=== PATIENT | female | born 1930 | race Caucasian/White ===

== ENCOUNTER 2019-05-01 10:49 | Inpatient (IN) ==
[2019-05-01] MEDS ORDERED: 0.9 % Sodium Chloride 1,000 ML IVC STA (11:08)
[2019-05-01 11:37] LABS: Bilirubin,Urine Negative (Negative); Blood,Urine Negative (Negative); Clarity,Urine Cloudy (Clear); Color,Urine Yellow (Yellow); Glucose,Urine (UA) Normal (Normal); Ketones,Urine Negative (Negative); Leukocyte Esterase,Urine Moderate (Negative); Nitrite,Urine Positive (Negative); PH,Urine 6.5 pH Units (5.0-8.0); Protein,Urine Negative (Neg-Trace); Specific Gravity,Urine 1.015 (1.010-1.025); Urobilinogen,Urine Normal (Normal)
[2019-05-01 11:40] LABS: Bacteria,Urine Many per hpf (None-Few); Hyaline Casts,Urine Few per lpf (None-Few); RBC,Urine 0-3 per hpf (0-3); Squamous Epithelial Cell,Urine Moderate per lpf (None-Few); WBC,Urine 50-100 per hpf (0-3)
[2019-05-01 11:56] LABS: Basophils # 0.1 K/mcL (0.0-0.2); Eosinophils # 0.2 K/mcL (0.0-0.6); Hematocrit 40.3 % (35.3-44.9); Hemoglobin 12.9 g/dL (11.5-15.4); Immature Granulocytes % 0.4 % (0-4); Lymphocytes % 18.4 %; Mean Corpuscular Hemoglobin 28.7 pg (28.0-33.3); Mean Corpuscular Volume 89.6 fL (83.0-100.0); Mean Platelet Volume 10.8 fL (9.4-12.4); Monocytes # 0.4 K/mcL (0.0-1.3); Monocytes % 8.1 %; Neutrophils # 3.6 K/mcL (1.6-8.9); Platelet Count 239 K/mcL (140-400); Red Cell Distribution Width 13.7 % (11.5-14.5); Segmented Neutrophils % 68.1 %; White Blood Count 5.2 K/mcL (4.3-11.1)
[2019-05-01 12:11] LABS: BUN/Creatinine Ratio 19 (6-26); Blood Urea Nitrogen 19 mg/dL (8-23); Calcium 9.7 mg/dL (8.6-10.3); Carbon Dioxide 27 mEq/L (23-29); Chloride 107 mEq/L (98-107); Glucose 96 mg/dL (70-105); Osmolality,Calculated 296 (280-300); Potassium 4.1 mEq/L (3.5-5.1); Sodium 142 mEq/L (136-145); eGFR For African Americans > 60 (> 60); eGFR For Non-African Americans 52 (> 60)
[2019-05-01] MEDS ORDERED: cefTRIAXone 1,000 MG in 0.9 % Sodium Chloride Mini Bag 100 ML IVPB ONE (12:32)
[2019-05-01] MEDS ORDERED: Ondansetron 4 MG/2 ML VIAL IVP PRN (13:51)
[2019-05-01] MEDS ORDERED: Naloxone 0.4 MG/ML INJ IVP PRN (13:51)
[2019-05-01 15:31] LABS: Magnesium 2.1 mg/dL (1.6-2.6)
[2019-05-01 15:32] LABS: Troponin I < 0.03 ng/mL (< 0.04)
[2019-05-01] MEDS: *HR* Heparin 5,000 UNIT/ML VIAL SQ SCH (17:43)
[2019-05-02 03:04] LABS: Alanine Aminotransferase 5 Units/L (7-52); Albumin 3.5 g/dL (3.5-5.7); Albumin/Globulin Ratio 1.3 (1.1-2.2); Alkaline Phosphatase 62 Units/L (34-104); Aspartate Amino Transferase 10 Units/L (13-39); BUN/Creatinine Ratio 16 (6-26); Bilirubin,Total 0.4 mg/dL (0.3-1.0); Blood Urea Nitrogen 15 mg/dL (8-23); Calcium 9.5 mg/dL (8.6-10.3); Carbon Dioxide 24 mEq/L (23-29); Chloride 106 mEq/L (98-107); Chol/HDL Ratio 5.9 (0-4.9); Cholesterol 226 mg/dL (< 200); Globulin 2.8 g/dL (2.4-3.5); Glucose 107 mg/dL (70-105); HDL Cholesterol 38 mg/dL (40-59); LDL Cholesterol,Calculated 151 mg/dL (0-99); Osmolality,Calculated 287 (280-300); Potassium 3.8 mEq/L (3.5-5.1); Sodium 138 mEq/L (136-145); Total Protein 6.3 g/dL (6.4-8.9); Triglycerides 186 mg/dL (< 150); eGFR For African Americans > 60 (> 60); eGFR For Non-African Americans 57 (> 60)
[2019-05-02] MEDS: *HR* Heparin 5,000 UNIT/ML VIAL SQ SCH ×2 (05:02→17:16)
[2019-05-02] MEDS: cefTRIAXone 1,000 MG in Water for inj. (sterile) 10 ML IVP SCH (08:26)
[2019-05-02] MEDS: (Donepezil Hcl 23 MG) PO SCH (09:01)
[2019-05-03] MEDS ORDERED: Haloperidol Lactate 5 MG/ML VIAL IVP ONE (00:33)
[2019-05-03] MEDS ORDERED: *HR* Promethazine 25 MG/ML VIAL IVP ONE (00:33)
[2019-05-03] MEDS: *HR* Heparin 5,000 UNIT/ML VIAL SQ SCH ×2 (05:11→17:41)
[2019-05-03] MEDS: cefTRIAXone 1,000 MG in Water for inj. (sterile) 10 ML IVP SCH (09:54)
[2019-05-03] MEDS: (Donepezil Hcl 23 MG) PO SCH (09:55)
[2019-05-04] MEDS: *HR* Heparin 5,000 UNIT/ML VIAL SQ SCH (05:14)
[2019-05-04 07:12] VITALS: BP 152/75
[2019-05-04] MEDS: (Donepezil Hcl 23 MG) PO SCH (10:08)
[2019-05-04] MEDS: cefTRIAXone 1,000 MG in Water for inj. (sterile) 10 ML IVP SCH (10:08)
== END 2019-05-04 13:09 | disposition home or self-care (01) | DRG 689 ==
LOC: EMEROOARM 10:49 → 3BNU 10:49 → SUATTDRO 13:34 → 3BNU 14:19
PROVIDERS: ADMIT Internal Medicine; ATTEND Internal Medicine

== ENCOUNTER 2019-05-08 11:48 | Observation (INO) ==
[2019-05-08] MEDS ORDERED: Piperacillin/Tazobactam 3.375 GM in 0.9 % Sodium Chloride Mini Bag 100 ML IVPB ONE (12:22)
[2019-05-08] MEDS ORDERED: 0.9 % Sodium Chloride 500 ML IVC ONE (12:24)
[2019-05-08 13:15] LABS: Basophils # 0.1 K/mcL (0.0-0.2); Eosinophils # 0.2 K/mcL (0.0-0.6); Eosinophils % 2.7 %; Hematocrit 39.9 % (35.3-44.9); Immature Granulocytes % 0.5 % (0-4); Lymphocytes % 16.5 %; Mean Corpuscular HGB Conc 32.6 g/dL (31.6-35.5); Mean Corpuscular Hemoglobin 28.8 pg (28.0-33.3); Mean Corpuscular Volume 88.5 fL (83.0-100.0); Mean Platelet Volume 10.5 fL (9.4-12.4); Monocytes # 0.5 K/mcL (0.0-1.3); Monocytes % 7.6 %; Neutrophils # 4.5 K/mcL (1.6-8.9); Platelet Count 310 K/mcL (140-400); Red Blood Count 4.51 M/mcL (3.82-4.97); Red Cell Distribution Width 13.6 % (11.5-14.5); Segmented Neutrophils % 71.7 %; White Blood Count 6.3 K/mcL (4.3-11.1)
[2019-05-08 13:21] LABS: Bilirubin,Urine Negative (Negative); Blood,Urine Negative (Negative); Clarity,Urine Clear (Clear); Color,Urine Yellow (Yellow); Glucose,Urine (UA) Normal (Normal); Ketones,Urine Negative (Negative); Leukocyte Esterase,Urine Negative (Negative); Nitrite,Urine Negative (Negative); Protein,Urine Negative (Neg-Trace); Urobilinogen,Urine Normal (Normal)
[2019-05-08 13:44] LABS: Alanine Aminotransferase 7 Units/L (7-52); Albumin 3.6 g/dL (3.5-5.7); Albumin/Globulin Ratio 1.1 (1.1-2.2); Alkaline Phosphatase 66 Units/L (34-104); Aspartate Amino Transferase 12 Units/L (13-39); BUN/Creatinine Ratio 31 (6-26); Bilirubin,Direct 0.1 mg/dL (0.0-0.2); Bilirubin,Indirect 0.3 mg/dL (0.0-1.0); Bilirubin,Total 0.4 mg/dL (0.3-1.0); Blood Urea Nitrogen 34 mg/dL (8-23); Calcium 9.7 mg/dL (8.6-10.3); Carbon Dioxide 25 mEq/L (23-29); Chloride 105 mEq/L (98-107); Globulin 3.2 g/dL (2.4-3.5); Glucose 101 mg/dL (70-105); Osmolality,Calculated 296 (280-300); Potassium 4.7 mEq/L (3.5-5.1); Sodium 139 mEq/L (136-145); Total Protein 6.8 g/dL (6.4-8.9); Troponin I < 0.03 ng/mL (< 0.04); eGFR For African Americans 57 (> 60); eGFR For Non-African Americans 47 (> 60)
[2019-05-08] MEDS ORDERED: Ondansetron 4 MG/2 ML VIAL IVP PRN (16:55)
[2019-05-08] MEDS ORDERED: Naloxone 0.4 MG/ML INJ IVP PRN (16:55)
[2019-05-08] MEDS ORDERED: Acetaminophen 325 MG TABLET PO PRN (16:55)
[2019-05-08] MEDS ORDERED: 0.9 % Sodium Chloride 1,000 ML IVC SCH (17:00)
[2019-05-08] MEDS: Diclofenac Sodium (DR) 75 MG TABLET.DR PO SCH (22:47)
[2019-05-09 06:03] LABS: Basophils % 0.6 %; Eosinophils # 0.3 K/mcL (0.0-0.6); Hematocrit 36.1 % (35.3-44.9); Immature Granulocytes % 0.4 % (0-4); Mean Corpuscular HGB Conc 31.3 g/dL (31.6-35.5); Mean Corpuscular Hemoglobin 29.4 pg (28.0-33.3); Mean Corpuscular Volume 93.8 fL (83.0-100.0); Monocytes # 0.5 K/mcL (0.0-1.3); Monocytes % 7.4 %; Neutrophils # 5.1 K/mcL (1.6-8.9); Platelet Count 265 K/mcL (140-400); Red Blood Count 3.85 M/mcL (3.82-4.97); Red Cell Distribution Width 13.6 % (11.5-14.5); Segmented Neutrophils % 73.6 %; White Blood Count 6.9 K/mcL (4.3-11.1)
[2019-05-09 06:07] LABS: Hemoglobin 11.3 g/dL (11.5-15.4)
[2019-05-09 06:30] LABS: Calcium 8.9 mg/dL (8.6-10.3); Magnesium 2.4 mg/dL (1.6-2.6); Phosphorous 3.2 mg/dL (2.7-4.5); Potassium 4.6 mEq/L (3.5-5.1)
[2019-05-09] MEDS: Diclofenac Sodium (DR) 75 MG TABLET.DR PO SCH (07:38)
[2019-05-09 12:17] VITALS: BP 109/70
== END 2019-05-09 16:37 | disposition home health service (06) ==
LOC: 3BNU 11:48 → EMEROOARM 11:48 → SUATTDRO 17:33 → 3BNU 18:41
PROVIDERS: ADMIT Family Medicine; ATTEND Internal Medicine

== ENCOUNTER 2019-06-10 13:47 | Observation (INO) ==
[2019-06-10 14:24] LABS: Bilirubin,Urine Negative (Negative); Blood,Urine Negative (Negative); Clarity,Urine Clear (Clear); Color,Urine Yellow (Yellow); Glucose,Urine (UA) Normal (Normal); Ketones,Urine Negative (Negative); Leukocyte Esterase,Urine Trace (Negative); Nitrite,Urine Negative (Negative); PH,Urine 7.5 pH Units (5.0-8.0); Protein,Urine Trace mg/dL (Neg-Trace); Urobilinogen,Urine Normal (Normal)
[2019-06-10 14:27] LABS: Bacteria,Urine None Seen per hpf (None-Few); Hyaline Casts,Urine None Seen per lpf (None-Few); Squamous Epithelial Cell,Urine Moderate per lpf (None-Few); WBC,Urine 0-3 per hpf (0-3)
[2019-06-10 14:32] LABS: Amphetamine Screen,Urine Negative ng/mL (Cutoff=1000); Barbiturate Screen,Urine Negative ng/mL (Cutoff=200); Benzodiazepines Screen,Urine Negative ng/mL (Cutoff=200); Cannabinoid Screen,Urine Negative ng/mL (Cutoff = 50); Cocaine Screen,Urine Negative ng/mL (Cutoff= 300); Opiate Screen,Urine Negative ng/mL (Cutoff=300); Phencyclidine Screen,Urine Negative ng/mL (Cutoff=25)
[2019-06-10 14:51] LABS: Basophils # 0.1 K/mcL (0.0-0.2); Basophils % 0.8 %; Eosinophils # 0.2 K/mcL (0.0-0.6); Eosinophils % 2.7 %; Hematocrit 39.8 % (35.3-44.9); Immature Granulocytes % 1.4 % (0-4); Lymphocytes # 1.4 K/mcL (0.6-4.6); Lymphocytes % 18.4 %; Mean Corpuscular HGB Conc 30.2 g/dL (31.6-35.5); Mean Corpuscular Hemoglobin 28.6 pg (28.0-33.3); Mean Platelet Volume 10.2 fL (9.4-12.4); Monocytes # 0.4 K/mcL (0.0-1.3); Monocytes % 5.6 %; Neutrophils # 5.6 K/mcL (1.6-8.9); Platelet Count 348 K/mcL (140-400); Red Blood Count 4.19 M/mcL (3.82-4.97); Red Cell Distribution Width 14.7 % (11.5-14.5); Segmented Neutrophils % 71.1 %; White Blood Count 7.8 K/mcL (4.3-11.1)
[2019-06-10 14:54] LABS: INR 0.9
[2019-06-10 14:57] LABS: Activated Partial Thrombo Time 28.8 Seconds (26.0-36.0)
[2019-06-10 15:10] LABS: Alanine Aminotransferase 8 Units/L (7-52); Albumin 3.7 g/dL (3.5-5.7); Albumin/Globulin Ratio 1.1 (1.1-2.2); Alkaline Phosphatase 81 Units/L (34-104); Aspartate Amino Transferase 11 Units/L (13-39); BUN/Creatinine Ratio 34 (6-26); Bilirubin,Direct 0.1 mg/dL (0.0-0.2); Bilirubin,Indirect 0.2 mg/dL (0.0-1.0); Bilirubin,Total 0.3 mg/dL (0.3-1.0); Blood Urea Nitrogen 35 mg/dL (8-23); Calcium 9.9 mg/dL (8.6-10.3); Carbon Dioxide 28 mEq/L (23-29); Chloride 103 mEq/L (98-107); Ethanol < 10 mg/dL (Less than 10); Globulin 3.3 g/dL (2.4-3.5); Glucose 97 mg/dL (70-105); Osmolality,Calculated 300 (280-300); Potassium 4.9 mEq/L (3.5-5.1); Sodium 141 mEq/L (136-145); Troponin I < 0.03 ng/mL (< 0.04); eGFR For African Americans > 60 (> 60); eGFR For Non-African Americans 51 (> 60)
[2019-06-10] MEDS ORDERED: Ondansetron 4 MG/2 ML VIAL IVP PRN (16:17)
[2019-06-10] MEDS ORDERED: 0.9 % Sodium Chloride 1,000 ML IVC SCH (16:30)
[2019-06-10] MEDS: *HR* Heparin 5,000 UNIT/ML VIAL SQ SCH (19:55)
[2019-06-11] MEDS: *HR* Heparin 5,000 UNIT/ML VIAL SQ SCH ×2 (05:55→18:05)
[2019-06-11] MEDS: (Donepezil Hcl 23 MG) PO SCH (11:35)
[2019-06-12 05:33] LABS: Calcium 9.7 mg/dL (8.6-10.3); Potassium 4.6 mEq/L (3.5-5.1)
[2019-06-12] MEDS: *HR* Heparin 5,000 UNIT/ML VIAL SQ SCH ×2 (05:42→18:59)
[2019-06-12] MEDS: (Donepezil Hcl 23 MG) PO SCH (09:49)
[2019-06-12] MEDS: cephALEXin 250 MG CAPSULE PO SCH (09:49)
[2019-06-13] MEDS: *HR* Heparin 5,000 UNIT/ML VIAL SQ SCH ×2 (05:07→17:26)
[2019-06-13] MEDS: cephALEXin 250 MG CAPSULE PO SCH (09:43)
[2019-06-13] MEDS: (Donepezil Hcl 23 MG) PO SCH (09:44)
[2019-06-14] MEDS: *HR* Heparin 5,000 UNIT/ML VIAL SQ SCH ×2 (05:03→17:25)
[2019-06-14] MEDS: cephALEXin 250 MG CAPSULE PO SCH (08:05)
[2019-06-15] MEDS: *HR* Heparin 5,000 UNIT/ML VIAL SQ SCH ×2 (05:03→17:27)
[2019-06-15] MEDS: cephALEXin 250 MG CAPSULE PO SCH (08:27)
[2019-06-16 02:17] LABS: Hematocrit 35.2 % (35.3-44.9); Mean Corpuscular HGB Conc 31.3 g/dL (31.6-35.5); Mean Corpuscular Hemoglobin 29.4 pg (28.0-33.3); Mean Corpuscular Volume 94.1 fL (83.0-100.0); Mean Platelet Volume 10.4 fL (9.4-12.4); Platelet Count 294 K/mcL (140-400); Red Blood Count 3.74 M/mcL (3.82-4.97); Red Cell Distribution Width 14.9 % (11.5-14.5); White Blood Count 7.3 K/mcL (4.3-11.1)
[2019-06-16 02:39] LABS: BUN/Creatinine Ratio 34 (6-26); Blood Urea Nitrogen 35 mg/dL (8-23); Calcium 9.9 mg/dL (8.6-10.3); Carbon Dioxide 28 mEq/L (23-29); Chloride 103 mEq/L (98-107); Glucose 104 mg/dL (70-105); Osmolality,Calculated 294 (280-300); Potassium 4.5 mEq/L (3.5-5.1); Sodium 138 mEq/L (136-145); eGFR For African Americans > 60 (> 60); eGFR For Non-African Americans 50 (> 60)
[2019-06-16] MEDS: *HR* Heparin 5,000 UNIT/ML VIAL SQ SCH (05:02)
[2019-06-16] MEDS: cephALEXin 250 MG CAPSULE PO SCH (08:42)
[2019-06-16 15:32] VITALS: BP 102/68
== END 2019-06-16 16:22 ==
LOC: EMEROOARM 13:47 → 3BNU 13:47 → SUATTDRO 16:04 → 3BNU 17:24
PROVIDERS: ADMIT Internal Medicine; ATTEND Internal Medicine

== ENCOUNTER 2019-08-21 12:12 | Inpatient (IN) ==
[2019-08-21 13:05] LABS: Bilirubin,Urine Negative (Negative); Blood,Urine Negative (Negative); Color,Urine Yellow (Yellow); Glucose,Urine (UA) Normal (Normal); Ketones,Urine Negative (Negative); Leukocyte Esterase,Urine Moderate (Negative); Nitrite,Urine Negative (Negative); Protein,Urine Negative (Neg-Trace); Specific Gravity,Urine 1.024 (1.010-1.025); Urobilinogen,Urine Normal (Normal)
[2019-08-21 13:10] LABS: Bacteria,Urine None Seen per hpf (None-Few); Hyaline Casts,Urine Few per lpf (None-Few); RBC,Urine 0-3 per hpf (0-3); Squamous Epithelial Cell,Urine Many per lpf (None-Few); WBC,Urine 50-100 per hpf (0-3)
[2019-08-21 13:11] LABS: Clarity,Urine Slightly Hazy (Clear)
[2019-08-21 13:18] LABS: Amphetamine Screen,Urine Negative ng/mL (Cutoff=1000); Barbiturate Screen,Urine Negative ng/mL (Cutoff=200); Benzodiazepines Screen,Urine Negative ng/mL (Cutoff=200); Cannabinoid Screen,Urine Negative ng/mL (Cutoff = 50); Cocaine Screen,Urine Negative ng/mL (Cutoff= 300); Opiate Screen,Urine Negative ng/mL (Cutoff=300); Phencyclidine Screen,Urine Negative ng/mL (Cutoff=25)
[2019-08-21 13:45] LABS: Basophils % 0.5 %; Eosinophils # 0.1 K/mcL (0.0-0.6); Eosinophils % 2.2 %; Hematocrit 40.7 % (35.3-44.9); Hemoglobin 12.2 g/dL (11.5-15.4); Immature Granulocytes % 0.8 % (0-4); Lymphocytes # 1.4 K/mcL (0.6-4.6); Lymphocytes % 21.5 %; Mean Corpuscular Hemoglobin 27.9 pg (28.0-33.3); Mean Corpuscular Volume 92.9 fL (83.0-100.0); Mean Platelet Volume 10.8 fL (9.4-12.4); Monocytes # 0.4 K/mcL (0.0-1.3); Monocytes % 6.9 %; Neutrophils # 4.4 K/mcL (1.6-8.9); Platelet Count 255 K/mcL (140-400); Red Blood Count 4.38 M/mcL (3.82-4.97); Red Cell Distribution Width 14.4 % (11.5-14.5); Segmented Neutrophils % 68.1 %; White Blood Count 6.4 K/mcL (4.3-11.1)
[2019-08-21 14:05] LABS: Alanine Aminotransferase 7 Units/L (7-52); Albumin 3.4 g/dL (3.5-5.7); Albumin/Globulin Ratio 1.2 (1.1-2.2); Alkaline Phosphatase 64 Units/L (34-104); Aspartate Amino Transferase 10 Units/L (13-39); BUN/Creatinine Ratio 30 (6-26); Bilirubin,Direct 0.1 mg/dL (0.0-0.2); Bilirubin,Indirect 0.2 mg/dL (0.0-1.0); Bilirubin,Total 0.3 mg/dL (0.3-1.0); Blood Urea Nitrogen 28 mg/dL (8-23); Calcium 9.4 mg/dL (8.6-10.3); Carbon Dioxide 27 mEq/L (23-29); Chloride 110 mEq/L (98-107); Ethanol < 10 mg/dL (Less than 10); Globulin 2.9 g/dL (2.4-3.5); Glucose 90 mg/dL (70-105); Osmolality,Calculated 299 (280-300); Potassium 4.5 mEq/L (3.5-5.1); Sodium 142 mEq/L (136-145); Total Protein 6.3 g/dL (6.4-8.9); Troponin I < 0.03 ng/mL (< 0.04); eGFR For African Americans > 60 (> 60); eGFR For Non-African Americans 57 (> 60)
[2019-08-21] MEDS ORDERED: Cefuroxime PO 250 MG TABLET PO ONE (15:58)
[2019-08-21] MEDS ORDERED: Naloxone 0.4 MG/ML INJ IVP PRN (17:43)
[2019-08-21] MEDS: Ringers Solution, Lactated 1,000 ML IVC SCH (21:04)
[2019-08-22 05:16] LABS: Basophils % 0.6 %; Eosinophils # 0.1 K/mcL (0.0-0.6); Eosinophils % 2.7 %; Hematocrit 34.9 % (35.3-44.9); Hemoglobin 10.7 g/dL (11.5-15.4); Immature Granulocytes % 0.6 % (0-4); Lymphocytes # 1.5 K/mcL (0.6-4.6); Mean Corpuscular HGB Conc 30.7 g/dL (31.6-35.5); Mean Corpuscular Hemoglobin 28.4 pg (28.0-33.3); Mean Corpuscular Volume 92.6 fL (83.0-100.0); Mean Platelet Volume 11.4 fL (9.4-12.4); Monocytes # 0.4 K/mcL (0.0-1.3); Monocytes % 7.8 %; Neutrophils # 2.7 K/mcL (1.6-8.9); Platelet Count 193 K/mcL (140-400); Red Blood Count 3.77 M/mcL (3.82-4.97); Red Cell Distribution Width 14.4 % (11.5-14.5); Segmented Neutrophils % 57.3 %; White Blood Count 4.7 K/mcL (4.3-11.1)
[2019-08-22 05:38] LABS: BUN/Creatinine Ratio 29 (6-26); Blood Urea Nitrogen 24 mg/dL (8-23); Calcium 8.9 mg/dL (8.6-10.3); Carbon Dioxide 25 mEq/L (23-29); Chloride 111 mEq/L (98-107); Glucose 89 mg/dL (70-105); Osmolality,Calculated 294 (280-300); Potassium 4.1 mEq/L (3.5-5.1); Sodium 140 mEq/L (136-145); eGFR For African Americans > 60 (> 60); eGFR For Non-African Americans > 60 (> 60)
[2019-08-22] MEDS ORDERED: *HR* LORazepam 0.5 MG TABLET PO PRN (08:37)
[2019-08-22] MEDS ORDERED: traZODone 50 MG TABLET PO PRN (08:37)
[2019-08-22] MEDS ORDERED: Acetaminophen 325 MG TABLET PO PRN (08:37)
[2019-08-22] MEDS ORDERED: Bisacodyl 10 MG RECTAL SUPPOSITORY RC PRN (08:37)
[2019-08-22] MEDS: Ringers Solution, Lactated 1,000 ML IVC SCH ×2 (10:00→22:49)
[2019-08-22] MEDS: cefTRIAXone 1,000 MG in Water for inj. (sterile) 10 ML IVP SCH (10:02)
[2019-08-23 05:28] LABS: Basophils % 0.6 %; Eosinophils # 0.1 K/mcL (0.0-0.6); Eosinophils % 2.7 %; Hematocrit 33.9 % (35.3-44.9); Hemoglobin 10.3 g/dL (11.5-15.4); Immature Granulocytes % 0.6 % (0-4); Lymphocytes # 1.4 K/mcL (0.6-4.6); Lymphocytes % 28.8 %; Mean Corpuscular HGB Conc 30.4 g/dL (31.6-35.5); Mean Corpuscular Hemoglobin 28.1 pg (28.0-33.3); Mean Corpuscular Volume 92.6 fL (83.0-100.0); Mean Platelet Volume 10.9 fL (9.4-12.4); Monocytes # 0.4 K/mcL (0.0-1.3); Monocytes % 8.5 %; Neutrophils # 2.8 K/mcL (1.6-8.9); Platelet Count 236 K/mcL (140-400); Red Blood Count 3.66 M/mcL (3.82-4.97); Red Cell Distribution Width 14.4 % (11.5-14.5); Segmented Neutrophils % 58.8 %; White Blood Count 4.8 K/mcL (4.3-11.1)
[2019-08-23 05:44] LABS: BUN/Creatinine Ratio 24 (6-26); Blood Urea Nitrogen 21 mg/dL (8-23); Calcium 8.9 mg/dL (8.6-10.3); Carbon Dioxide 28 mEq/L (23-29); Chloride 109 mEq/L (98-107); Glucose 94 mg/dL (70-105); Magnesium 1.9 mg/dL (1.6-2.6); Osmolality,Calculated 291 (280-300); Potassium 4.1 mEq/L (3.5-5.1); Sodium 139 mEq/L (136-145); eGFR For African Americans > 60 (> 60); eGFR For Non-African Americans > 60 (> 60)
[2019-08-23] MEDS: cefTRIAXone 1,000 MG in Water for inj. (sterile) 10 ML IVP SCH (09:03)
[2019-08-23] MEDS: Ringers Solution, Lactated 1,000 ML IVC SCH (12:21)
[2019-08-23] MEDS: *HR* Heparin 5,000 UNIT/ML VIAL SQ SCH (17:37)
[2019-08-24] MEDS: Ringers Solution, Lactated 1,000 ML IVC SCH ×2 (01:04→15:01)
[2019-08-24] MEDS: *HR* Heparin 5,000 UNIT/ML VIAL SQ SCH ×2 (05:59→17:51)
[2019-08-24] MEDS: cephALEXin 250 MG CAPSULE PO SCH ×4 (08:30→20:27)
[2019-08-25] MEDS: Ringers Solution, Lactated 1,000 ML IVC SCH (03:47)
[2019-08-25] MEDS: *HR* Heparin 5,000 UNIT/ML VIAL SQ SCH (05:09)
[2019-08-25] MEDS: cephALEXin 250 MG CAPSULE PO SCH ×2 (08:12→13:29)
[2019-08-25 15:05] VITALS: BP 134/69
== END 2019-08-25 17:43 ==
LOC: 3BNU 12:12 → EMEROOARM 12:12 → SUATTDRO 16:37 → 3BNU 17:21
PROVIDERS: ADMIT Internal Medicine; ATTEND Internal Medicine

== ENCOUNTER 2019-09-05 14:48 | Inpatient (IN) ==
[2019-09-05] MEDS ORDERED: *HR* FentaNYL (PF) 100 MCG/2 ML VIAL IVP STA (15:07)
[2019-09-05 15:41] LABS: Hematocrit 37.3 % (35.3-44.9); Hemoglobin 11.4 g/dL (11.5-15.4); Mean Corpuscular HGB Conc 30.6 g/dL (31.6-35.5); Mean Corpuscular Hemoglobin 28.4 pg (28.0-33.3); Mean Platelet Volume 10.6 fL (9.4-12.4); Platelet Count 282 K/mcL (140-400); Red Blood Count 4.01 M/mcL (3.82-4.97); Red Cell Distribution Width 14.6 % (11.5-14.5); White Blood Count 7.1 K/mcL (4.3-11.1)
[2019-09-05 15:53] LABS: BUN/Creatinine Ratio 24 (6-26); Blood Urea Nitrogen 22 mg/dL (8-23); Calcium 9.2 mg/dL (8.6-10.3); Carbon Dioxide 28 mEq/L (23-29); Chloride 110 mEq/L (98-107); Glucose 96 mg/dL (70-105); Osmolality,Calculated 293 (280-300); Potassium 4.3 mEq/L (3.5-5.1); Sodium 140 mEq/L (136-145); eGFR For African Americans > 60 (> 60); eGFR For Non-African Americans 57 (> 60)
[2019-09-05 16:05] LABS: Bilirubin,Urine Negative (Negative); Blood,Urine Negative (Negative); Clarity,Urine Clear (Clear); Color,Urine Yellow (Yellow); Glucose,Urine (UA) Normal (Normal); Ketones,Urine Negative (Negative); Leukocyte Esterase,Urine Small (Negative); Nitrite,Urine Negative (Negative); PH,Urine 5.5 pH Units (5.0-8.0); Protein,Urine Negative (Neg-Trace); Urobilinogen,Urine Normal (Normal)
[2019-09-05 16:06] LABS: Bacteria,Urine None Seen per hpf (None-Few); Hyaline Casts,Urine None Seen per lpf (None-Few); RBC,Urine 0-3 per hpf (0-3); Squamous Epithelial Cell,Urine Many per lpf (None-Few); WBC,Urine 0-3 per hpf (0-3)
[2019-09-05] MEDS ORDERED: *HR* HYDROmorphone (PF) 1 MG/ML SYRINGE IVP ONE (19:45)
[2019-09-05] MEDS ORDERED: Bisacodyl 10 MG RECTAL SUPPOSITORY RC ONE (20:48)
[2019-09-05] MEDS ORDERED: Naloxone 0.4 MG/ML INJ IVP PRN ×3 (20:49→20:54)
[2019-09-05] MEDS ORDERED: 0.9 % Sodium Chloride 1,000 ML IVC SCH (21:00)
[2019-09-05 21:25] LABS: Troponin I < 0.03 ng/mL (< 0.04)
[2019-09-05 23:14] LABS: Bilirubin,Urine Negative (Negative); Blood,Urine Negative (Negative); Clarity,Urine Clear (Clear); Color,Urine Yellow (Yellow); Glucose,Urine (UA) Normal (Normal); Ketones,Urine Negative (Negative); Leukocyte Esterase,Urine Negative (Negative); Nitrite,Urine Negative (Negative); Protein,Urine Negative (Neg-Trace); Specific Gravity,Urine 1.021 (1.010-1.025); Urobilinogen,Urine Normal (Normal)
[2019-09-06 03:19] LABS: Basophils % 0.6 %; Eosinophils # 0.1 K/mcL (0.0-0.6); Eosinophils % 1.2 %; Hematocrit 36.3 % (35.3-44.9); Hemoglobin 10.9 g/dL (11.5-15.4); Immature Granulocytes % 0.8 % (0-4); Lymphocytes # 1.1 K/mcL (0.6-4.6); Lymphocytes % 20.7 %; Mean Corpuscular Hemoglobin 27.7 pg (28.0-33.3); Mean Corpuscular Volume 92.4 fL (83.0-100.0); Mean Platelet Volume 10.8 fL (9.4-12.4); Monocytes # 0.4 K/mcL (0.0-1.3); Monocytes % 7.6 %; Neutrophils # 3.5 K/mcL (1.6-8.9); Platelet Count 219 K/mcL (140-400); Red Blood Count 3.93 M/mcL (3.82-4.97); Red Cell Distribution Width 14.5 % (11.5-14.5); Segmented Neutrophils % 69.1 %; White Blood Count 5.1 K/mcL (4.3-11.1)
[2019-09-06 03:25] LABS: Prothrombin Time 11.1 Seconds (9.4-12.1)
[2019-09-06 03:56] LABS: Alanine Aminotransferase 705 Units/L (7-52); Albumin 3.5 g/dL (3.5-5.7); Albumin/Globulin Ratio 1.3 (1.1-2.2); Alkaline Phosphatase 209 Units/L (34-104); Aspartate Amino Transferase 990 Units/L (13-39); BUN/Creatinine Ratio 25 (6-26); Bilirubin,Total 0.5 mg/dL (0.3-1.0); Blood Urea Nitrogen 19 mg/dL (8-23); Calcium 9.3 mg/dL (8.6-10.3); Carbon Dioxide 28 mEq/L (23-29); Chloride 106 mEq/L (98-107); Globulin 2.8 g/dL (2.4-3.5); Glucose 91 mg/dL (70-105); Osmolality,Calculated 292 (280-300); Phosphorous 3.2 mg/dL (2.7-4.5); Potassium 4.2 mEq/L (3.5-5.1); Sodium 140 mEq/L (136-145); Total Protein 6.3 g/dL (6.4-8.9); eGFR For African Americans > 60 (> 60); eGFR For Non-African Americans > 60 (> 60)
[2019-09-06 05:32] LABS: Acetaminophen < 10 mcg/mL (10-20); Ethanol < 10 mg/dL (Less than 10)
[2019-09-06 05:47] LABS: Albumin 3.1 g/dL (3.5-5.7); Albumin/Globulin Ratio 1.3 (1.1-2.2); Bilirubin,Direct 0.2 mg/dL (0.0-0.2); Bilirubin,Indirect 0.3 mg/dL (0.0-1.0); Bilirubin,Total 0.5 mg/dL (0.3-1.0); Globulin 2.4 g/dL (2.4-3.5); Total Protein 5.5 g/dL (6.4-8.9)
[2019-09-06] MEDS: *HR* Heparin 5,000 UNIT/ML VIAL SQ SCH (17:16)
[2019-09-07 02:03] LABS: Hematocrit 35.9 % (35.3-44.9); Mean Corpuscular HGB Conc 30.6 g/dL (31.6-35.5); Mean Corpuscular Hemoglobin 28.1 pg (28.0-33.3); Mean Corpuscular Volume 91.6 fL (83.0-100.0); Platelet Count 201 K/mcL (140-400); Red Blood Count 3.92 M/mcL (3.82-4.97); Red Cell Distribution Width 14.6 % (11.5-14.5); White Blood Count 4.4 K/mcL (4.3-11.1)
[2019-09-07 02:21] LABS: % Iron Saturation 14 % (15-50); BUN/Creatinine Ratio 18 (6-26); Blood Urea Nitrogen 13 mg/dL (8-23); Calcium 9.3 mg/dL (8.6-10.3); Carbon Dioxide 27 mEq/L (23-29); Chloride 105 mEq/L (98-107); Glucose 82 mg/dL (70-105); Iron 44 mcg/dL (50-170); Osmolality,Calculated 283 (280-300); Potassium 4.3 mEq/L (3.5-5.1); Sodium 137 mEq/L (136-145); Transferrin 217 mg/dL (203-362); eGFR For African Americans > 60 (> 60); eGFR For Non-African Americans > 60 (> 60)
[2019-09-07 02:37] LABS: Ferritin 86 ng/mL (10-120)
[2019-09-07 02:56] LABS: Albumin 3.2 g/dL (3.5-5.7); Albumin/Globulin Ratio 1.2 (1.1-2.2); Bilirubin,Direct 0.2 mg/dL (0.0-0.2); Bilirubin,Indirect 0.4 mg/dL (0.0-1.0); Bilirubin,Total 0.6 mg/dL (0.3-1.0); Globulin 2.7 g/dL (2.4-3.5); Total Protein 5.9 g/dL (6.4-8.9)
[2019-09-07] MEDS: *HR* Heparin 5,000 UNIT/ML VIAL SQ SCH (05:21)
[2019-09-07] MEDS ORDERED: Ondansetron 4 MG/2 ML VIAL ONE (07:30)
[2019-09-07] MEDS ORDERED: Lidocaine -MPF 2% 2 ML VIAL ONE (07:30)
[2019-09-07] MEDS ORDERED: Dexamethasone 4 MG/ML VIAL ONE (07:30)
[2019-09-07] MEDS ORDERED: *HR* Propofol 200 MG/20 ML VIAL IVP ONE (07:30)
[2019-09-07] MEDS ORDERED: *HR* FentaNYL (PF) 100 MCG/2 ML VIAL ONE (07:30)
[2019-09-07] MEDS ORDERED: Morphine Sulfate 2 MG/ML SYRINGE IVP PRN (07:33)
[2019-09-07] MEDS ORDERED: *HR* OxyCODONE Immed Rel 5 MG TABLET PO PRN (07:33)
[2019-09-07] MEDS ORDERED: *HR* Labetalol 20 MG/4 ML SYRINGE IVP PRN ×2 (07:33→09:14)
[2019-09-07] MEDS ORDERED: Ondansetron 4 MG/2 ML VIAL IVP ONE ×2 (07:33→09:14)
[2019-09-07] MEDS ORDERED: Clindamycin 900 MG/50 ML 900 MG/50 ML IV.SOLN IVPB ONE ×2 (07:45→07:49)
[2019-09-07] MEDS ORDERED: EPHEDrine 50 MG/ML VIAL ONE (07:57)
[2019-09-07] MEDS ORDERED: *HR* Metoprolol 5 MG/5 ML VIAL IVP ONE (08:25)
[2019-09-07] MEDS ORDERED: Lactobacillus 1 EACH CAP.SPRINK PO SCH (09:00)
[2019-09-07] MEDS ORDERED: Naloxone 0.4 MG/ML INJ IVP PRN (09:14)
[2019-09-07] MEDS: Clindamycin 900 MG/50 ML 900 MG/50 ML IV.SOLN IVPB SCH ×2 (10:15→16:11)
[2019-09-07] MEDS ORDERED: *HR* LORazepam 2 MG/ML VIAL IVP ONE (20:28)
[2019-09-07] MEDS ORDERED: *HR* LORazepam 2 MG/ML VIAL ONE (20:33)
[2019-09-08 04:50] LABS: Hemoglobin 9.6 g/dL (11.5-15.4); Mean Corpuscular Hemoglobin 27.9 pg (28.0-33.3); Mean Corpuscular Volume 90.1 fL (83.0-100.0); Mean Platelet Volume 10.7 fL (9.4-12.4); Platelet Count 193 K/mcL (140-400); Red Blood Count 3.44 M/mcL (3.82-4.97); Red Cell Distribution Width 14.5 % (11.5-14.5); White Blood Count 6.5 K/mcL (4.3-11.1)
[2019-09-08 05:13] LABS: Alanine Aminotransferase 270 Units/L (7-52); Albumin 3.1 g/dL (3.5-5.7); Albumin/Globulin Ratio 1.2 (1.1-2.2); Alkaline Phosphatase 157 Units/L (34-104); Aspartate Amino Transferase 56 Units/L (13-39); BUN/Creatinine Ratio 20 (6-26); Bilirubin,Direct 0.1 mg/dL (0.0-0.2); Bilirubin,Indirect 0.3 mg/dL (0.0-1.0); Bilirubin,Total 0.4 mg/dL (0.3-1.0); Blood Urea Nitrogen 16 mg/dL (8-23); Calcium 9.4 mg/dL (8.6-10.3); Carbon Dioxide 29 mEq/L (23-29); Chloride 104 mEq/L (98-107); Globulin 2.5 g/dL (2.4-3.5); Glucose 111 mg/dL (70-105); Osmolality,Calculated 288 (280-300); Potassium 4.2 mEq/L (3.5-5.1); Sodium 138 mEq/L (136-145); Total Protein 5.6 g/dL (6.4-8.9); eGFR For African Americans > 60 (> 60); eGFR For Non-African Americans > 60 (> 60)
[2019-09-08] MEDS: Lactobacillus 1 EACH CAP.SPRINK PO SCH (08:31)
[2019-09-08] MEDS ORDERED: Haloperidol Lactate 5 MG/ML VIAL IVP ONE (13:55)
[2019-09-08] MEDS: *HR* Heparin 5,000 UNIT/ML VIAL SQ SCH (18:21)
[2019-09-08] MEDS ORDERED: Acetaminophen 325 MG TABLET PO ONE (19:05)
[2019-09-08] MEDS ORDERED: *HR* Metoprolol 5 MG/5 ML VIAL IVP PRN (19:07)
[2019-09-08] MEDS ORDERED: *HR* LORazepam 2 MG/ML VIAL IVP ONE (21:08)
[2019-09-09 02:26] LABS: Basophils % 0.4 %; Eosinophils # 0.2 K/mcL (0.0-0.6); Eosinophils % 1.8 %; Hematocrit 31.2 % (35.3-44.9); Hemoglobin 9.6 g/dL (11.5-15.4); Immature Granulocytes % 0.8 % (0-4); Lymphocytes # 1.1 K/mcL (0.6-4.6); Lymphocytes % 13.5 %; Mean Corpuscular HGB Conc 30.8 g/dL (31.6-35.5); Mean Platelet Volume 11.4 fL (9.4-12.4); Monocytes # 0.6 K/mcL (0.0-1.3); Monocytes % 6.7 %; Neutrophils # 6.5 K/mcL (1.6-8.9); Platelet Count 235 K/mcL (140-400); Red Blood Count 3.43 M/mcL (3.82-4.97); Red Cell Distribution Width 14.7 % (11.5-14.5); Segmented Neutrophils % 76.8 %; White Blood Count 8.5 K/mcL (4.3-11.1)
[2019-09-09 02:45] LABS: BUN/Creatinine Ratio 30 (6-26); Blood Urea Nitrogen 23 mg/dL (8-23); Calcium 9.1 mg/dL (8.6-10.3); Carbon Dioxide 27 mEq/L (23-29); Chloride 103 mEq/L (98-107); Glucose 97 mg/dL (70-105); Osmolality,Calculated 282 (280-300); Potassium 4.2 mEq/L (3.5-5.1); Sodium 134 mEq/L (136-145); eGFR For African Americans > 60 (> 60); eGFR For Non-African Americans > 60 (> 60)
[2019-09-09 03:07] LABS: Bilirubin,Urine Negative (Negative); Blood,Urine Large (Negative); Clarity,Urine Turbid (Clear); Color,Urine Yellow (Yellow); Glucose,Urine (UA) Normal (Normal); Ketones,Urine Negative (Negative); Leukocyte Esterase,Urine Large (Negative); Nitrite,Urine Negative (Negative); Protein,Urine 30 mg/dL (Neg-Trace); Specific Gravity,Urine 1.016 (1.010-1.025); Urobilinogen,Urine Normal (Normal)
[2019-09-09 03:10] LABS: Bacteria,Urine Few per hpf (None-Few); Hyaline Casts,Urine None Seen per lpf (None-Few); Squamous Epithelial Cell,Urine Many per lpf (None-Few); WBC,Urine TNTC per hpf (0-3)
[2019-09-09] MEDS: *HR* Heparin 5,000 UNIT/ML VIAL SQ SCH (06:01)
[2019-09-09 06:42] VITALS: BP 98/59
[2019-09-09 08:00] LABS: Alanine Aminotransferase 171 Units/L (7-52); Albumin 3.1 g/dL (3.5-5.7); Albumin/Globulin Ratio 1.2 (1.1-2.2); Alkaline Phosphatase 141 Units/L (34-104); Aspartate Amino Transferase 25 Units/L (13-39); Bilirubin,Direct 0.1 mg/dL (0.0-0.2); Bilirubin,Indirect 0.3 mg/dL (0.0-1.0); Bilirubin,Total 0.4 mg/dL (0.3-1.0); Globulin 2.5 g/dL (2.4-3.5); Total Protein 5.6 g/dL (6.4-8.9)
[2019-09-09] MEDS: Lactobacillus 1 EACH CAP.SPRINK PO SCH (08:53)
== END 2019-09-09 13:27 | DRG 481 ==
LOC: EMEROOARM 14:48 → 3NENU 14:48 → OBSVTOIN 20:19 → SUATTDRO 20:19 → 3NENU 21:20
PROVIDERS: ADMIT Family Medicine; ATTEND Internal Medicine